=== PATIENT | female | born 1945 | race Caucasian/White ===

== ENCOUNTER 2017-05-03 08:39 | Emergency (ER) | payer MEDICARE, OTHER ==
[~2017-05-03] VITALS: Ht 162.6 cm; Wt 75.7 kg
[~2017-05-03 08:39] MED LIST: AMOX250S2 PO; D32000CA PO; DULO20 PO; FOLI1 PO; HYDR7.5S PO; LEVO75TA3 PO; METH2.5 PO; PROT40TA PO
[2017-05-03 08:44] VITALS: BP 123/64; PULSE 98; RESP 16; TEMP 98.7; O2SAT 96
--- NOTE | 2017-05-03 09:02 | PD ---
HPI Chief Complaint: Cold / Flu Symptoms Time Seen by Provider: 08:53 Travel History International Travel<30 days: No Contact w/Intl Traveler<30days: No Traveled to known affect area: No History of Present Illness HPI Patient comes to the emergency department complaining of flulike symptoms that began less than 48 hours ago. Patient reports she has been visiting her in the hospital who has flu and pneumonia. Patient reports that started off with cough that is occasionally productive with yellow phlegm since developed sore throat, nausea, generalized body aches, and subjective fevers. Patient reports taking Tylenol for this that helped some. Last dose this morning. Denies any making symptoms worse. Denies any chest pain, shortness of breath, abdominal pain, loss or change in bowel or bladder, or vomiting. PFSH Past Medical History Cancer: No Cardiovascular Problems: No Diabetes: No Endocrine: No Genitourinary: No Hepatitis: No Hiatal Hernia: No Immune Disorder: Yes Musculoskeletal: Yes (CONNECTIVE TISSUE DISORDER, FIBROMYALIA,RA) Neurologic: No Psychiatric: No Respiratory: No Thyroid Disease: Yes ?: Not Past Surgical History Abdominal Surgery: Yes (APPENDECTOMY) AICD: No Gynecologic Surgery: Yes (PARTIAL HYSTERECTOMY) Joint Replacement: No Thoracic Surgery: Yes (LEFT BREAST LUMPECTOMY-BENIGN) Tonsillectomy: Yes (06/10/2014) Other Surgery: Yes Social History Alcohol Use: Yes (OCCAS) Tobacco Use: No Substance Use: No Allergies-Medications (Allergen,Severity, Reaction): Coded Allergies: diatrizoate meglumine (Unverified Allergy, Unknown, Hives, 05/03/17) gadobenic acid (Unverified Allergy, Unknown, Hives, 05/03/17) gadodiamide (Unverified Allergy, Unknown, Hives, 05/03/17) gadoteridol (Unverified Allergy, Unknown, Hives, 05/03/17) iodixanol (Unverified Allergy, Unknown, Hives, 05/03/17) iohexol (Unverified Allergy, Unknown, Hives, 05/03/17) Reported Meds & Prescriptions Reported Meds & Active Scripts Active Zofran Odt (Ondansetron Odt) 4 Mg Tab 4 Mg SL Q6HR PRN Tamiflu (Oseltamivir Phosphate) 75 Mg Cap 75 Mg PO BID 5 Days Reported Humira 2-Pack Inj (Adalimumab 2-Pack Inj) 40 Mg/0.8 Ml Syr 40 Mg SQ Q14D Pantoprazole (Pantoprazole Sodium) 40 Mg Tab 40 Mg PO BID Methotrexate 2.5 Mg Tab 2.5 Mg PO Q7D Levothyroxine (Levothyroxine Sodium) 75 Mcg Tab 75 Mcg PO DAILY Folic Acid 0.4 Mg Tab 1 Mg PO DAILY Cymbalta DR (Duloxetine HCl) 60 Mg Capdr 60 Mg PO DAILY Vitamin D3 (Cholecalciferol) 2,000 Unit Cap 2,000 Units PO DAILY Review of Systems Except as stated in HPI: all other systems reviewed are Neg Physical Exam Narrative GENERAL: Well-developed, overly nourished, in no acute distress, and non-ill appearing. SKIN: Focused skin assessment warm and dry. HEAD: Atraumatic. Normocephalic. EYES: Pupils equal and round. EOMI. No scleral icterus. No injection or drainage. ENT: No nasal bleeding or discharge. Mucous membranes pink and moist. Tympanic membranes pearly robledo bilaterally. Posterior pharynx nonerythematous without exudate. Uvula is midline. No tenderness to facial sinuses to palpation. NECK: Trachea midline. No cervical lymphadenopathy. Supple. No nuclear rigidity. CARDIOVASCULAR: Regular rate and rhythm. No murmur appreciated. RESPIRATORY: No accessory muscle use. No respiratory distress. Clear to auscultation. Breath sounds equal bilaterally. No coughing noted on exam. MUSCULOSKELETAL: No obvious deformities. No clubbing. No cyanosis. No edema. Full range of motion. NEUROLOGICAL: Awake and alert. No obvious cranial nerve deficits. Motor grossly within normal limits. Normal speech. PSYCHIATRIC: Appropriate mood and affect; insight and judgment normal. Data Data Last Documented VS Vital Signs Date Time Temp Pulse Resp B/P (MAP) Pulse Ox O2 Delivery O2 Flow Rate FiO2 05/03/17 08:44 98.7 98 16 123/64 (83) 96 Orders Orders Group A Rapid Strep Screen (05/03/17 08:57) Chest, Single Ap (05/03/17 ) Strep Culture (Group A) (05/03/17 09:05) Ed Discharge Order (05/03/17 09:45) MDM Medical Decision Making Medical Screen Exam Complete: Yes Emergency Medical Condition: Yes Interpretation(s) Last Impressions Chest X-Ray 05/03/17 0000 Signed Impressions: Service Date/Time: Wednesday, May 03, 2017 09:03 - CONCLUSION: 1. No acute cardiopulmonary findings. Davis Armas MD Differential Diagnosis Influenza, pneumonia, strep pharyngitis, viral pharyngitis, URI, viral syndrome Narrative Course Patient looks great. Patients symptom complex is consistent with Influenza, or flu-like illness. The patient is tolerating fluids and is well hydrated. There is no evidence to suggest secondary infection (pneumonia, sepsis/bacteremia, etc.) at this time. I discussed with the patient, diagnosis, and plan of care and to follow up with the patients primary physician. I discussed with the patient regarding testing, even if rapid influenza negative, I would suspect false negative. I discussed with the patient initiating Tamiflu and the patient agreed with plan. The patient was instructed to return if the worsens in anyway , especially if not tolerating fluids, increased pain or swelling, difficulty swallowing or breathing, or as needed. The patient agreed with plan. Chest X- ray was performed and negative for consolidation, pneumonia. Patient in no obvious distress upon re-evaluation. All pertinent laboratory/ Radiology result(s) discussed with patient. Patient was asked if they wanted to speak to my attending, which the patient did not wish to do at this time. Any questions/concerns in reference to patient diagnosis/condition discussed and clarified prior to patient's discharge. Reinforced sheer importance of close follow up with patient's primary physician or primary care clinic. Instructed patient to return to ED immediately, if symptoms return/worsen. Patient showed understanding of above instructions. Further instructions and recommendations were detailed in discharge paperwork. Patient ambulated without difficulty out of ED at discharge. Diagnosis Primary Impression: Influenza Patient Instructions: General Instructions, Influenza (ED) Additional Instructions: Follow-up with your primary care physician in 3-5 days for reevaluation. Take all medication as prescribed. Continue using [id number] Tylenol as needed for pain and fever control. Follow instructions on the packaging. Drink plenty of non-caffeinated nonalcoholic fluid. Return to the emergency department if symptoms get worse. Med/Other Pt SpecificInfo: Prescription(s) given Scripts Ondansetron Odt (Zofran Odt) 4 Mg Tab 4 MG SL Q6HR Y for Nausea/Vomiting, #12 TAB 0 Refills Prov: Baltazar Jimenes MD 05/03/17 Oseltamivir (Tamiflu) 75 Mg Cap 75 MG PO BID for Mgmt Viral Infection for 5 Days, #10 CAP 0 Refills Prov: Baltazar Jimenes MD 05/03/17 Disposition: 01 DISCHARGE HOME Condition: Stable Uri Wilkes May 03, 2017 09:02
[2017-05-03] MEDS ORDERED: HUMI40KI SQ (09:07)
[2017-05-03] MEDS ORDERED: VITA2000 PO (09:07)
[2017-05-03] MEDS ORDERED: PANT40TA3 PO (09:07)
[2017-05-03] MEDS ORDERED: CYMB60CA PO (09:07)
[2017-05-03] MEDS ORDERED: FOLI400T PO (09:07)
[2017-05-03] MEDS ORDERED: METH2.5T PO (09:07)
[2017-05-03] MEDS ORDERED: LEVO75TA3 PO (09:07)
--- NOTE | 2017-05-03 09:37 | RADRPT ---
EXAM DATE/TIME: 05/03/2017 09:03 [facility] COMPARISON: No previous studies available for comparison. INDICATIONS : Cough, fever, sore throat, body aces, neause. MEDICAL HISTORY : Rheumatoid arthritis. Thyroid disease. Fibromyalgia. SURGICAL HISTORY : Tonsillectomy. Appendectomy. Carpal tunnel syndrome. Partial hysterectomy. ENCOUNTER: Initial ACUITY: 2 days PAIN SCORE: 0/10 LOCATION: chest FINDINGS: A single view of the chest demonstrates the lungs to be symmetrically aerated without evidence of mas s, infiltrate or effusion. The cardiomediastinal contours are unremarkable. Osseous structures are intact. CONCLUSION: 1. No acute cardiopulmonary findings. Davis Armas MD on May 03, 2017 at 9:35 Board Certified Radiologist. This report was verified electronically.
[2017-05-03] MEDS ORDERED: OSEL75 PO (09:42)
[2017-05-03] MEDS ORDERED: ZOFR4TAB3 SL (09:44)
== END 2017-05-03 09:52 | disposition home or self-care (01) ==
LOC: PHEFT 08:39
DX: J11.1 Influenza due to unidentified influenza virus with other respiratory manifestations (principal); Z88.8 Allergy status to other drugs, medicaments and biological substances
CPT/HCPCS: 71045; 87081; 87880; 99284